=== PATIENT | male | born 1950 | race Caucasian/White ===

== ENCOUNTER 2017-01-06 21:19 | Inpatient (IN) ==
--- NOTE | 2017-01-06 22:17 | Emergency Department Note ---
Disposition Clinical Impression: Renal calculus Disposition: Admitted As Inpatient Condition: Good Referrals: [place],PCP [Primary Care Provider] - Time of Disposition: 00:59 General Adult HPI - General Chief complaint: ED Urogenital-Male Stated complaint: 9 mm kidney stone Time Seen by Provider: 01/06/17 21:40 Source: patient Mode of arrival: ambulatory Limitations: no limitations Nursing Notes Reviewed: Yes Vital Signs Reviewed: Yes - History of Present Illness HPI Narrative: Patient complaining of left flank pain that began today. States he does have a history of renal stones. States it feels the same. Denies any urinary symptoms or fevers. States he had a CT done at the [place] and was given pain medication. It showed a 9 mm renal stone at the UVJ on the left. He has had to have surgery for previous stones. Pain Scale: 3 - Related Data Home Medications Medication Instructions Recorded Confirmed Aspirin 81 mg PO HS 07/28/16 07/28/16 Carvedilol [Coreg] 25 mg PO BID 07/28/16 07/28/16 Dicyclomine [Bentyl] 10 mg PO QID 07/28/16 07/28/16 Pravastatin Sodium [Pravachol] 40 mg PO HS 07/28/16 07/28/16 glipiZIDE [Glucotrol] 5 mg PO BIDWM 07/28/16 07/28/16 hydroCHLOROthiazide 25 mg PO DAILY 07/28/16 07/28/16 [Hydrochlorothiazide] Carboxymethylcellulose Sodium 1 drop OP QID PRN 01/06/17 01/06/17 [Refresh Tears] Allergies Allergy/AdvReac Type Severity Reaction Status Date / Time exenatide Allergy Hypertensio Verified 01/06/17 21:32 n metformin Allergy Rash Verified 01/06/17 21:32 Penicillins Allergy Rash Verified 01/06/17 21:20 Review of Systems: Patient denies any fevers or chills. He denies any nausea vomiting or diarrhea. He does report left flank pain. He denies any radiation of this pain at this time. He denies any trouble urinating. He denies any burning on urination. He denies any edema to his extremities. All systems ED: reviewed and negative except as stated. Past Medical History - Past Medical History Attestation: Yes The following information was validated with the patient. Medical history: Reports: coronary artery disease, diabetes, hyperlipidemia, hypertension, kidney stones, myocardial infarction Surgical history: Reports: cholecystectomy Psychiatric history: Reports: no psych history - Social History Smoking Status: Current every day smoker Smokeless Tobacco Status: No Alcohol use: Reports: occasionally Drug use: Reports: none Physical Exam - General Limitations: no limitations General appearance: alert, in no apparent distress - Head Head exam: atraumatic, normocephalic, normal inspection - Eye Eye exam: Present: normal appearance, PERRL, EOMI - ENT ENT exam: normal exam, normal oropharynx, mucous membranes moist - Neck Neck exam: Present: normal inspection, full ROM, trachea midline - Chest Chest inspection: Present: normal inspection, symmetric chest wall rise - Respiratory Respiratory exam: Present: normal lung sounds bilaterally. Absent: respiratory distress - Cardiovascular Cardiovascular exam: Present: regular rate, normal rhythm, normal heart sounds - Abdominal Exam Abdominal exam: Present: soft, Non-Tender, normal bowel sounds. Absent: tenderness, distention, guarding, rebound, rigidity, organomegaly - Extremities Exam Extremities exam: Present: normal inspection, full ROM, normal capillary refill. Absent: tenderness, pedal edema - Back Exam Back exam: Present: normal inspection, full ROM, CVA tenderness (L). Absent: CVA tenderness (R) - Neurological Exam Neurological exam: Present: alert, oriented X3 - Psychiatric Psychiatric exam: Present: normal affect, normal mood - Skin Skin exam: Present: warm, dry, intact, normal color. Absent: rash, cyanosis, diaphoresis, erythema Course Course Narrative: Patient sent from the [place] for a 9 mm renal stone in his left UVJ. Patient states he has a history of stones. He has seen Dr. Giles here for this before. He has had have surgery several times to have them removed. 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 He states that he had an IV placed and was given Toradol prior to discharge from there and brought to here. With this pain significantly. He reports the pain to his left flank. He denies any urinary symptoms. He states that there was a trace amount of blood on his UA. He also states he was given Rocephin while at the [place] for a UTI. His white blood cell count is minimally elevated at 11.1. He is comfortable while here. He is not febrile. We will send a urine culture. I will speak with Dr. Melo for further workup for his kidney stone. Patient is agreeable to admission to the hospital. He is refusing any additional pain medication at this time. His creatinine is minimally elevated at 1.22. - Consultations Consultation #1: I spoke with Dr. Melo. He is requesting the patient be nothing by mouth after midnight and that he will see the patient tomorrow in the hospital. He is requesting we admitted to the hospitalist. Time: 10:08 Consultation #2: Dr Chinchilla accepted patient in stable condition. Time: 00:32 Vital Signs Temperature 98.8 F 01/06/17 21:22 Pulse Rate 72 01/06/17 21:22 Respiratory Rate 16 01/06/17 21:22 Blood Pressure 171/108 01/06/17 21:22 O2 Sat by Pulse Oximetry 95 01/06/17 21:22 Temperature 98.8 F 01/06/17 21:22 Pulse Rate 70 01/06/17 23:27 Respiratory Rate 16 01/07/17 00:47 Blood Pressure 166/108 01/07/17 00:47 O2 Sat by Pulse Oximetry 95 01/06/17 23:27 Oxygen Delivery Oxygen Delivery Room Air Medical Decision Making - Medical Records Medical records reviewed: Yes I reviewed the patient's medical records. - Lab Data Lab results reviewed: Yes I reviewed the patient's lab results. Lab Results 01/06/17 Range/Units 22:30 Urine Color Yellow (Yellow) Urine Clarity Clear (Clear) Urine pH 6.0 (5.0-8.0) pH Units Ur Specific [place] 1.012 (1.010-1.025) Urine Protein Negative (Neg-Trace) mg/dL Urine Glucose (UA) 250 H (Normal) mg/dL Urine Ketones Negative (Negative) mg/dL Urine Blood Moderate H (Negative) Urine Nitrite Negative (Negative) Urine Bilirubin Negative (Negative) Urine Urobilinogen Normal (Normal) mg/dL Ur Leukocyte Esterase Moderate H (Negative) Urine Microscopic RBC 3-5 H (0-3) per hpf Urine Microscopic WBC 15-30 H (0-3) per hpf Ur Squamous Epith Cells Moderate H (None-Few) per lpf Urine Bacteria None Seen (None-Few) per hpf Hyaline Casts None Seen (None-Few) per lpf Ur Culture Indicated? YES A (NO) - Radiology Data Radiology results reviewed: Yes I reviewed the patient's radiology results. Attestation Statement - Attestation Attestation: I personally interviewed and examined this patient and my medical decision- making was reviewed with the ED Resident Physician, Dr. Rivera. I agree with the documented findings, disposition and treatment plan as described except to the extent set forth below. Patient is a 66-year-old white male who presents to the emergency department sent here by EMS from the [place] after evaluation for flank pain with history of kidney stones. Patient sees Dr. Giles here in urology, was sent here because his urologist was affiliated here with our institution. Patient has been having right-sided flank pain and was found to have a 9 mm kidney stone at the right UVJ with moderate [place]. CT scan also shows some mild hydro-on the left with a cyst along the ureter. Was reported that they were concerned also about a concurrent urinary tract infection as well. Patient is resting comfortably at this time stating that his pain is well controlled currently, vital signs show elevated blood pressure. Reviewed records from the [place] which substantiate reports that [facility]. At this time we recommend patient be admitted for further evaluation and treatment of kidney stones. He has required urologic intervention in the past numerous times for his large stones. I agree with patient's physical exam findings as documented. Patient is agreeable for admission we contacted Dr. Melo who is on-call for urology who was consulate from the ED, and discussed the case with the hospitalist who accepted patient for admission.
[2017-01-06 22:42] LABS: Bilirubin,Urine Negative (Negative); Blood,Urine Moderate (Negative); Clarity,Urine Clear (Clear); Color,Urine Yellow (Yellow); Glucose,Urine (UA) 250 mg/dL (Normal); Ketones,Urine Negative (Negative); Leukocyte Esterase,Urine Moderate (Negative); Nitrite,Urine Negative (Negative); Protein,Urine Negative (Neg-Trace); Specific Gravity,Urine 1.012 (1.010-1.025); Urobilinogen,Urine Normal (Normal)
[2017-01-06 22:45] LABS: Bacteria,Urine None Seen per hpf (None-Few); Hyaline Casts,Urine None Seen per lpf (None-Few); Squamous Epithelial Cell,Urine Moderate per lpf (None-Few); WBC,Urine 15-30 per hpf (0-3)
[2017-01-07] MEDS ORDERED: Ketorolac 30 MG/ML VIAL IVP ONE (01:53)
[2017-01-07] MEDS ORDERED: Naloxone 0.4 MG/ML INJ IVP PRN (06:02)
[2017-01-07] MEDS ORDERED: 0.9 % Sodium Chloride 1,000 ML IVC SCH (06:15)
--- NOTE | 2017-01-07 06:24 | Internal Med History&Physical ---
Date of Encounter: 01/07/17 Time of Encounter: 06:23 Assessment and Plan (1) Ureteral calculus, left Current visit: Yes Status: Acute 8-9 mm calculus in the distal left ureter just before the ureterovesical junction with moderate left hydronephrosis and hydroureter. Urology consultation. Keep NPO for possible stent placement today. (2) Hydronephrosis due to obstruction of ureter Current visit: Yes Status: Acute Left hydroureter and hydronephrosis secondary to 9 mm calculus in the distal ureter. Urology consultation (3) UTI (urinary tract infection) Current visit: Yes Status: Acute Urinalysis done at [place] showed few bacteria with leucocyte esterase (UA done at [facility] did not show bacteria). Emperically treat for UTI, while waiting for cultures. Qualifiers: Urinary tract infection type: site unspecified Hematuria presence: without hematuria Qualified Code(s): N39.0 - Urinary tract infection, site not specified (4) Diabetes mellitus Current visit: Yes Status: Chronic Start sliding scale insulin Qualifiers: Diabetes mellitus type: type 2 Diabetes mellitus complication status: with unspecified complications Diabetes mellitus buttermaker continuous churn insulin use: without senior living use Qualified Code(s): E11.8 - Type 2 diabetes mellitus with unspecified complications (5) CAD (coronary artery disease) Current visit: Yes Status: Chronic continue home medications. WIll request EKG Qualifiers: Coronary Disease-Associated Artery/Lesion type: [place] artery [place] vs. transplanted heart: [place] heart Associated angina: without angina Qualified Code(s): I25.10 - Atherosclerotic heart disease of [place] coronary artery without angina pectoris (6) AAA (abdominal aortic aneurysm) without rupture Current visit: Yes Status: Chronic CT scan reported 4.1 cm abdominal aortic aneurysm at the iliac bifurcation measured in coronal plane, compared to 3.9 cm in June 2016. 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 No acute intervention. Pt need to follow up his [facility]CP [facility] (7) Elevated lipase Current visit: Yes Status: Acute Mild elevation of lipase at [place]. Will repeat lipase level. Internal Medicine - H&P: HPI Chief complaint: Left flank / LUQ pain Admitted From: Emergency Dept Plans for Post Hospital Care: Home History of present illness: Mr. Richardson is a 66 year old male With h/o coronary artery disease s/p stent placement, diabetes, hypertension, kidney stones and h/o cholecystectomy. He presented to the [facility] with left flank pain / LUQ pain, radiating to the left groin. Pain was sudden in onset and severe; impoved with ketorolac. He was evaluated with noncontrast CT scan of the abdomen, which reported 8-9 mm calculus in the distal left ureter just before the ureterovesical junction with moderate left hydronephrosis and hydroureter. Patient is sent to the emergency department at [facility] for further management. He was evaluated in the ER and discussed with urologist and admitted to the hospitalist service. Patient denies nausea, vomiting, fever , chills, chest pain, shortness of breath, hematuria, dysuria and change in bowel habits. CT scan of the abdomen and pelvis without contrast done at the [place] reported: 8-9 mm calculus in the distal left ureter just before the ureterovesical junction with moderate left hydronephrosis and hydroureter. 2-3 mm nodule in the distal right ureter just before the intravesicular junction. Minimal/mild right hydro- ureter and no hydronephrosis in the right kidney. Hepatic steatosis. 4.1 cm abdominal aneurysm at the iliac bifurcation measured in coronal plane, compared to 3.9 cm in June 2016. 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 Labs done at the [place] showed: WBC 11.1, hemoglobin 16.8, hematocrit 48.9, platelets 233. Serum sodium 137, potassium 3.7, glucose 2623, BUN 17, creatinine 1.02, AST 36, AST 58, lipase 350 (Range: 50-320); amylase 35. Urinalysis was positive for leukocyte esterase, WBC, few bacteria. Past Med Surg Social Fam HX - Past Medical History Medical history: coronary artery disease, diabetes, hyperlipidemia, hypertension , kidney stones, myocardial infarction Psychiatric history: no psych history - Past Surgical History Surgical History: cholecystectomy - Social History Smoking Status: Current every day smoker Packs per day: 1 Smokeless Tobacco Status: No Alcohol use: occasionally Drug use: none - Family History Father Hx Family Cancer: Yes Internal Medicine - H&P: Meds Aspirin 81 mg PO HS 07/28/16 [History] Carvedilol [Coreg] 6.25 mg PO BID 07/28/16 [History] Pravastatin Sodium [Pravachol] 20 mg PO HS 07/28/16 [History] glipiZIDE [Glucotrol] 10 mg PO BID 07/28/16 [History] hydroCHLOROthiazide [Hydrochlorothiazide] 25 mg PO DAILY 07/28/16 [History] Omeprazole [PriLOSEC] 20 mg PO DAILY 01/07/17 [History] Allergies exenatide Allergy (Verified 01/06/17 21:32) Hypertension metformin Allergy (Verified 01/06/17 21:32) Rash Penicillins Allergy (Verified 01/06/17 21:20) Rash *patient states can take cephalosporins All Systems PM: A 10-system review of systems was performed and is negative for pertinent findings except as documented above in the HPI. - Constitutional Vitals: Temp Pulse Resp BP Pulse Ox 97.5 F L 73 16 119/83 96 01/07/17 04:04 01/07/17 04:04 01/07/17 04:04 01/07/17 04:04 01/07/17 04:04 Exam: General: Not in acute distress at the time of my evaluation HEENT: Oral mucosa is moist. No conjunctival palor or scleral icterus Neck: No obvious neck swellings Lungs: Clear to auscultation Cardiac: Regular rate and rhythm. No significant murmurs Abdomen: Soft, non tender. No renal angle tenderness. Bowel sounds present Genitourinary: No reyes catheter Neurological: Alert and oriented. No gross localizing deficits Psych: Not aggressive or agitated Extremities: Bild B/L leg edema Skin: No generalized rash Internal Med - H&P Results - Labs CBC & Chem 7: 01/07/17 06:50 01/07/17 06:50 Labs: Labs done at the [place] showed: WBC 11.1, hemoglobin 16.8, hematocrit 48.9, platelets 233. Serum sodium 137, potassium 3.7, glucose 2623, BUN 17, creatinine 1.02, AST 36, AST 58, lipase 350 (Range: 50-320); amylase 35. Urinalysis was positive for leukocyte esterase, WBC, few bacteria. - Impressions CT scan of the abdomen and pelvis without contrast done at the [place] reported: 8-9 mm calculus in the distal left ureter just before the ureterovesical junction with moderate left hydronephrosis and hydroureter. 2-3 mm nodule in the distal right ureter just before the intravesicular junction. Minimal/mild right hydro- ureter and no hydronephrosis in the right kidney. Hepatic steatosis. 4.1 cm abdominal aneurysm at the iliac bifurcation measured in coronal plane, compared to 3.9 cm in June 2016. 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
[2017-01-07] MEDS ORDERED: *HR* HYDROcodone/Acet 5/325 mg TABLET PO PRN (07:14)
--- NOTE | 2017-01-07 07:16 | Urology - Consult Note ---
Date of Encounter: 01/07/17 Time of Encounter: 07:15 - Assessment and Plan (1) Bilateral ureteral calculi Current Visit: Yes Status: Acute Assessment and plan: Patient will be taken to the operating room today for bilateral ureteroscopic stone extraction Urology CN:CAM Consult date: 01/07/17 Reason for consult Urology: Hydronephrosis Requesting physician: Wan Padgett History of present illness: Pepito is a 66-year-old male with a well-known history of kidney stones. Patient has had to have surgical removal of them before. He states he presented at the [facility] today with significant left-sided flank pain was found to have a distal 9 mm ureteral stone on the left side as well as a distal 2-3 mm stone on the right side. Patient denies any nausea or vomiting. Pain is currently controlled. No fevers. Past Med Surg Social Fam HX - Past Medical History Medical history: coronary artery disease, diabetes, hyperlipidemia, hypertension , kidney stones, myocardial infarction Psychiatric history: no psych history - Past Surgical History Surgical History: cholecystectomy - Social History Smoking Status: Current every day smoker Packs per day: 1 Smokeless Tobacco Status: No Alcohol use: occasionally Drug use: none - Family History Father Hx Family Cancer: Yes Medications and Allergies Aspirin 81 mg PO HS 07/28/16 [History] Carvedilol [Coreg] 6.25 mg PO BID 07/28/16 [History] Pravastatin Sodium [Pravachol] 20 mg PO HS 07/28/16 [History] glipiZIDE [Glucotrol] 10 mg PO BID 07/28/16 [History] hydroCHLOROthiazide [Hydrochlorothiazide] 25 mg PO DAILY 07/28/16 [History] Omeprazole [PriLOSEC] 20 mg PO DAILY 01/07/17 [History] Allergies exenatide Allergy (Verified 01/06/17 21:32) Hypertension metformin Allergy (Verified 01/06/17 21:32) Rash Penicillins Allergy (Verified 01/06/17 21:20) Rash *patient states can take cephalosporins Review of Systems - Constitutional no chills, no fever(s) - EENT Nose, mouth and throat: no dizziness - Cardiovascular no chest pain - Respiratory no cough - Gastrointestinal abdominal pain Exam Initial Vital Signs Temp Pulse Resp BP Pulse Ox 98.8 F 72 16 171/108 95 01/06/17 21:22 01/06/17 21:22 01/06/17 21:22 01/06/17 21:22 01/06/17 21:22 - General physical appearance Present: well developed - ENT Present: normal nares - Neck Present: no masses - Abdomen Abdomen: Present: soft Urology Results - Labs Abnormal lab results POC Glucose 243 (58-89) H 01/07/17 01:11 Urine Glucose (UA) 250 mg/dL (Normal) H 01/06/17 22:30 Urine Blood Moderate (Negative) H 01/06/17 22:30 Ur Leukocyte Esterase Moderate (Negative) H 01/06/17 22:30 Urine Microscopic RBC 3-5 per hpf (0-3) H 01/06/17 22:30 Urine Microscopic WBC 15-30 per hpf (0-3) H 01/06/17 22:30 Ur Squamous Epith Cells Moderate per lpf (None-Few) H 01/06/17 22:30 Ur Culture Indicated? YES (NO) A 01/06/17 22:30 All other labs normal. - Imaging CT scan - abdomen: image reviewed CT scan - pelvis: image reviewed Consult Discharge Plan - Plan [facility]: [facility] Provider[facility] -
[2017-01-07 07:42] LABS: INR 1.1; Prothrombin Time 12.2 Seconds (9.4-12.1)
[2017-01-07 07:54] LABS: BUN/Creatinine Ratio 15 (6-26); Blood Urea Nitrogen 19 mg/dL (8-26); Calcium 8.8 mg/dL (8.6-10.8); Carbon Dioxide 29 mEq/L (19-29); Chloride 100 mEq/L (98-109); Glucose 282 mg/dL (70-99); Lipase 206 Units/L (8-78); Osmolality,Calculated 294 (280-300); Potassium 3.5 mEq/L (3.5-4.5); Sodium 136 mEq/L (136-145); eGFR For African Americans > 60 (> 60); eGFR For Non-African Americans 59 (> 60)
[2017-01-07 08:07] LABS: Basophils % 0.3 %; Eosinophils # 0.1 K/mcL (0.0-0.6); Eosinophils % 1.1 %; Hematocrit 45.6 % (37.5-50.1); Hemoglobin 15.5 g/dL (12.9-16.9); Immature Granulocytes % 0.2 % (0-4); Lymphocytes # 2.7 K/mcL (0.6-4.6); Lymphocytes % 29.7 %; Mean Platelet Volume 9.8 fL (9.4-12.4); Monocytes # 0.9 K/mcL (0.0-1.3); Monocytes % 9.9 %; Neutrophils # 5.3 K/mcL (1.6-8.9); Platelet Count 205 K/mcL (140-400); Red Blood Count 4.85 M/mcL (4.19-5.50); Red Cell Distribution Width 12.9 % (11.5-14.5); Segmented Neutrophils % 58.8 %
[2017-01-07] MEDS ORDERED: D5% in Water 1,000 ML IVC PRN (12:51)
[2017-01-07] MEDS ORDERED: Dextrose Gel 15 GM PO PRN ×2 (12:51)
[2017-01-07] MEDS ORDERED: *HR* Dextrose 50 % in Water (Syg) 50 ML SYRINGE IVP PRN (12:51)
[2017-01-07] MEDS ORDERED: Insulin LISPRO 300 UNITS/3 ML VIAL SQ SCH (12:52)
--- NOTE | 2017-01-07 13:13 | Anesthesia Evaluation PreOp ---
Date of Encounter: 01/07/17 Time of Encounter: 13:11 - Past History Planned Operation: Bilateral Ureteroscopic Stone Extraction Cardiac History: PA, HTN, Hyperlipidemia, Cardiac Stent (stent x 1 in 2004) Pulmonary History: Smoker (40 years), COPD, Snore PROSPECT MANAGER History: Denies Any Significant HX Other Medical History: Renal (kidney stones), Diabetes Type II, GERD Anesthesia History: No Prior Anesthetic Complications, Past Anesthesia Alcohol Use: occasionally Drug use: none Medications and Allergies Aspirin 81 mg PO HS 07/28/16 [History] Carvedilol [Coreg] 6.25 mg PO BID 07/28/16 [History] Pravastatin Sodium [Pravachol] 20 mg PO HS 07/28/16 [History] glipiZIDE [Glucotrol] 10 mg PO BID 07/28/16 [History] hydroCHLOROthiazide [Hydrochlorothiazide] 25 mg PO DAILY 07/28/16 [History] Omeprazole [PriLOSEC] 20 mg PO DAILY 01/07/17 [History] Allergies exenatide Allergy (Verified 01/06/17 21:32) Hypertension metformin Allergy (Verified 01/06/17 21:32) Rash Penicillins Allergy (Verified 01/06/17 21:20) Rash *patient states can take cephalosporins - Meds/Allergy Pre-op Review Medications Reviewed: Yes Allergies Reviewed: Yes Beta Blockers on Current Med List: Yes If Beta Blockers taken, Date/Time (Last Dose taken): 01/07/2017 at 0805 Anesthesia Results - Labs 01/07/17 06:50 01/07/17 06:50 Laboratory Tests 01/07/17 06:50 PT 12.2 H INR 1.1 - Imaging EKG: report reviewed (07/10/2016 SR, septal infarct) Anesthesia Exam Vital Signs/O2 Sat/Glucose, Most Recent Temp Pulse Resp BP Pulse Ox 97.5 F L 72 18 143/97 94 01/07/17 11:11 01/07/17 11:11 01/07/17 11:11 01/07/17 11:11 01/07/17 11:11 Blood Glucose* 257 Height: 6'/1.83 m Weight: 222 lbs/101.06 kg NPO (# of Hours): 8 Pain Scale: 0 Pain Scale Used: Numeric (1 - 10) - HEENT Pupil (Motor): EOMI Mallampati: III Teeth: Poor dentition (multiple broken/decayed teeth) Oral Opening: Greater than 3 - PROSPECT MANAGER LOC: Oriented PROSPECT MANAGER Motor: Normal RUE, Normal LUE, Normal RLE, Normal LLE, Normal Face PROSPECT MANAGER Sensory: Normal: RUE, LUE, RLE, LLE, Face - Cardiac Rhythm: Regular Murmur: None - Pulmonary Breath Sounds: bilateral Clear Respiratory Effort: Symmetrical Anesthesia Assess/Plan ASA Score: 3 Modified [place] Scale for Level of Consciousness: Cooperative, oriented, and tranquil Anesthetic Plan: General Monitoring Plan: Standard Monitors Recovery Plan: PACU
[2017-01-07] MEDS ORDERED: Dexamethasone 4 MG/ML VIAL ONE (13:27)
[2017-01-07] MEDS ORDERED: Lidocaine -MPF 2% 2 ML VIAL ONE (13:27)
[2017-01-07] MEDS ORDERED: *HR* Propofol 200 MG/20 ML VIAL IVP ONE (13:27)
[2017-01-07] MEDS ORDERED: *HR* FentaNYL (PF) 100 MCG/2 ML VIAL ONE (13:27)
[2017-01-07] MEDS ORDERED: *HR* Midazolam HCl 2 MG/2 ML VIAL ONE (13:27)
[2017-01-07] MEDS ORDERED: Ondansetron 4 MG/2 ML VIAL ONE (13:27)
[2017-01-07] MEDS ORDERED: Ondansetron 4 MG/2 ML VIAL IVP ONE (13:31)
[2017-01-07] MEDS ORDERED: Dexamethasone 4 MG/ML VIAL IVP ONE (13:31)
[2017-01-07] MEDS ORDERED: *HR* Morphine 2 MG/ML SYRINGE IVP PRN (13:31)
[2017-01-07] MEDS: *HR* Labetalol 20 MG/4 ML SYRINGE IVP PRN ×2 (14:27→14:36)
--- NOTE | 2017-01-07 15:01 | Anesthesia Evaluation Post Op ---
Date of Encounter: 01/07/17 Time of Encounter: 15:00 - Vital Signs Vital Signs: vss - Lungs Lungs: Clear Ascult./Percussion - Airway Airway: Non-obstructed - Cardiovascular Baseline Rhythm - Mental Status Mental Status: Alert & Oriented, Answers Appropriately - Pain Pain Scale: 0 Pain Scale used: Numeric (1 - 10) - Nausea Vomiting Nausea Vomiting: Not Present - Hydration Hydration: Tolerates oral liquids, Able to void - Discharge PostOp Status: Transfer Patient to floor
--- NOTE | 2017-01-07 15:22 | Operative Note ---
Date of procedure: 01/07/17 Pre-op diagnosis: bilateral ureteral stones Post-op diagnosis: same Procedure: Right ureteroscopic basket retrieval of stone, left ureteroscopic laser lithotripsy of stone, left ureteroscopic basket retrieval of stone fragments Anesthesia: REEA Surgeon: Rip Melo Specimen: ureteral stones Condition: stable Disposition: PACU Procedure in Detail: Patient was prepped and draped in normal sterile fashion. Timeout procedure performed. I then inserted the semirigid ureteroscope into the patient's urethra and advanced into the bladder. I cannulated the right ureteral orifice using a sensor wire. I then dilated the distal right ureter using 8/10 dilation sheath. I then placed a semirigid ureteroscope back into the right ureter were encountered the distal 2 mm stone. This was removed in its entirety. I then was able to negotiate the semirigid ureteroscope into the left ureteral orifice. I encountered the distal 8 mm stone. I used the holmium laser to fragment the stone. All stone fragments were removed using a basket device. The entire ureter was surveyed with no further stones seen. Patients are was ended after the bladder was drained. Patient is okay to discharge home after recovery on the floor. He will need a follow-up with me in 2-3 weeks for discussion of long-term management of kidney stones
[2017-01-07] MEDS ORDERED: Lidocaine Jelly 11 ml Syringe MM ONE (15:47)
[2017-01-07 15:57] VITALS: BP 156/94
--- NOTE | 2017-01-07 16:14 | Discharge Summary ---
Date of Encounter: 01/07/17 Time of Encounter: 16:12 - Discharge Diagnosis (1) Ureteral calculus, left Priority: Primary Status: Acute (2) UTI (urinary tract infection) Priority: Primary Status: Acute Qualifiers: Urinary tract infection type: site unspecified Hematuria presence: without hematuria Qualified Code(s): N39.0 - Urinary tract infection, site not specified - Discharge Medications Prescriptions: Ciprofloxacin [Cipro] 500 mg PO BID #10 tablet Home Medications: Aspirin 81 mg PO HS 07/28/16 [History] Carvedilol [Coreg] 6.25 mg PO BID 07/28/16 [History] Pravastatin Sodium [Pravachol] 20 mg PO HS 07/28/16 [History] glipiZIDE [Glucotrol] 10 mg PO BID 07/28/16 [History] hydroCHLOROthiazide [Hydrochlorothiazide] 25 mg PO DAILY 07/28/16 [History] Ciprofloxacin [Cipro] 500 mg PO BID #10 tablet 01/07/17 [Rx] Omeprazole [PriLOSEC] 20 mg PO DAILY 01/07/17 [History] Allergies/Adverse Reactions: Allergies exenatide Allergy (Verified 01/06/17 21:32) Hypertension metformin Allergy (Verified 01/06/17 21:32) Rash Penicillins Allergy (Verified 01/06/17 21:20) Rash *patient states can take cephalosporins Procedures/tests Complete & Pending: Procedures Performed prior 72 hours Category Date Time Status EKG [ECG 12 lead ECG] [ECG] Stat Y 01/07/17 06:05 Completed Date of admission: 01/07/17 00:39 Primary care physician: [facility] Discharging clinician: Immanuel Mitchell Anticipated date of discharge: 01/07/17 - Patient Status Disposition: Home, Self-Care Condition: Fair Functional capacity at discharge: independent ambulation Overall status at discharge: patient is back to baseline - Discharge Instructions Instructions: Ciprofloxacin (By mouth), Kidney Stones (DC), Ureteroscopy (DC) Follow [facility]: [facility] [Primary Care Provider] - - Diet and Activity Activity: resume usual activities as tolerated Diet: advance to your usual diet Interval History: Pepito is a 66-year-old male with a well-known history of kidney stones. Patient has had to have surgical removal of them before. He states he presented at the [facility] today with significant left-sided flank pain was found to have a distal 9 mm ureteral stone on the left side as well as a distal 2-3 mm stone on the right side. Patient denies any nausea or vomiting. Pain is currently controlled. No fevers. urology was consulted and he underwent Right ureteroscopic basket retrieval of stone, left ureteroscopic laser lithotripsy of stone, left ureteroscopic basket retrieval of stone fragments. post procedure he remains stable. at the time of admission, his UA shows infection and was started on IV ceftriaxone. will continue oral antibiotics for 5 days as he has high risk given ureteric stone and a procedure done . he is being dc in stable condition today Hospital course: Mr. Richardson is a 66 year old male - Time Spent with Patient Total time spent providing and/or coordinating discharge services: - Constitutional Vitals: Temp Pulse Resp BP Pulse Ox 97.6 F 71 15 156/94 94 01/07/17 15:15 01/07/17 15:30 01/07/17 15:30 01/07/17 15:30 01/07/17 15:30 General appearance: Present: A&O X 3, no acute distress Exam: HEENT: Oral mucosa is moist. No conjunctival palor or scleral icterus Neck: No obvious neck swellings Lungs: Clear to auscultation Cardiac: Regular rate and rhythm. No significant murmurs Abdomen: Soft, non tender. No renal angle tenderness. Bowel sounds present Genitourinary: No reyes catheter Neurological: Alert and oriented. No gross localizing deficits Psych: Not aggressive or agitated Extremities: no edema Skin: No generalized rash
--- NOTE | 2017-01-07 17:49 | Electrocardiograph Report ---
[place] [id number] Test Date: 2017-01-07 Pat Name: Pepito Richardson Department: 113 Room: 3B Gender: M [employer] Operator: : 1950 Requested By: Wan Padgett Order Number: [id number] Reading MD: Heather Christian Measurements Intervals [place] Rate: 69 P: 84 WI: 175 QRS: -3 QRSD: 106 T: 34 QT: 400 QTc: 418 Interpretive Statements SINUS RHYTHM Electronically Signed On 01-07-2017 17:46:59 EDT by Heather Christian
[2017-01-07] MEDS ORDERED: Aspirin 81 MG TAB.CHEW PO SCH (21:00)
== END 2017-01-07 17:26 | disposition home or self-care (01) ==
LOC: EMEROO 21:19 → 3BNU 01-07 00:39
PROVIDERS: ADMIT Internal Medicine; ATTEND Nurse Practitioner Family